=== PATIENT | male | born 1945 | race Caucasian/White ===

== ENCOUNTER 2016-09-04 12:50 | Day surgery (SDC) | payer MEDICARE ==
[2016-09-03 08:34] VITALS: BP 143/84
[2016-09-03 08:41] LABS: ASPARTATE AMINO TRANSFERASE 30 U/L (15-37); BLOOD UREA NITROGEN 29 mg/dL (7-18)
[~2016-09-04] VITALS: Ht 177.8 cm; Wt 88.0 kg
[~2016-09-04 12:50] MED LIST: ATOR40TA78 PO; LEVO75TA5 PO; LOSA25TA5 PO; METO50TA11 PO; PANT40TA5 PO
[2016-09-04] MEDS ORDERED: LACTATED RINGERS 1,000 ML IV SCH (13:11)
[2016-09-04 13:22] VITALS: BP 143/84
[2016-09-04] MEDS ORDERED: LIDOCAINE 1%, 2ML ONE (13:23)
[2016-09-04] MEDS ORDERED: INDOCYANINE GREEN 25 MG VIAL ONE (15:53)
[2016-09-04] MEDS ORDERED: CEFOTETAN 2 GM ONE (16:30)
[2016-09-04] MEDS ORDERED: PROPOFOL 10 MG/ML, 20ML ONE (16:30)
[2016-09-04] MEDS ORDERED: EPINEPHRINE SYRINGE 0.1 MG/ML, 10ML ONE (17:13)
== END 2016-09-04 18:05 | disposition home or self-care (01) ==
LOC: OUT 12:50
PROVIDERS: ATTEND Internal Medicine Gastroenterology
DX: K63.5 Polyp of colon (principal); I25.10 Atherosclerotic heart disease of native coronary artery without angina pectoris; I10 Essential (primary) hypertension; Z95.1 Presence of aortocoronary bypass graft; E78.5 Hyperlipidemia, unspecified; E03.9 Hypothyroidism, unspecified; K21.9 Gastro-esophageal reflux disease without esophagitis; E78.00 Pure hypercholesterolemia, unspecified; Z86.010 Personal history of colon polyps; I42.2 Other hypertrophic cardiomyopathy; Z86.73 Personal history of transient ischemic attack (TIA), and cerebral infarction without residual deficits; Z87.891 Personal history of nicotine dependence; Z80.0 Family history of malignant neoplasm of digestive organs
CPT/HCPCS: 36415; 43251; 43254; 80053; 88305; 93005; J2704; J7120; S0074